=== PATIENT | male | born 1975 ===

== ENCOUNTER 2016-11-05 08:35 | Emergency (ER) | payer OTHER ==
[2016-11-05 08:35] VITALS: BMI 33.6
[2016-11-05] MEDS ORDERED: DiphenhydrAMINE 50 mg/ml Inj ONE (09:35)
[2016-11-05] MEDS ORDERED: DiphenhydrAMINE 50 mg/ml Inj IVP STA (09:35)
--- NOTE | 2016-11-05 09:50 | ED PDOC ---
HPI: General Adult Time Seen by Provider: 11/05/16 09:09 Chief Complaint (Nursing): Chest Pain Chief Complaint (Provider): Chest Pain History Per: Patient History/Exam Limitations: no limitations Onset/Duration Of Symptoms: Days (x1 month) Current Symptoms Are (Timing): Still Present Additional Complaint(s): 41 y/o male with a past medical history of Asthma and GURD who presents to the emergency department with a complaint of on and off appearing hives for the past month. Associated with intermittently swelling to the lower lip and constant chest pain described as pins and needles that worsens when he lays down especially on the left side. Patient also states symptoms feel like GURD but much worse. Reports taking Benadryl at home with the relief of symptoms. Denies shortness of breath, palpitations, and throat swelling. Of note, patient works as a bouncer and notes that the rash usually happens after work and goes home. PMD: None Past Medical History Reviewed: Historical Data, Nursing Documentation, Vital Signs Vital Signs: Last Vital Signs Temp 97.6 F 11/05/16 12:05 Pulse 75 11/05/16 12:01 Resp 17 11/05/16 12:01 BP 119/66 11/05/16 12:01 Pulse Ox 99 11/05/16 14:01 - Medical History PMH: Asthma, Bronchitis, GERD Denies: Chronic Kidney Disease - Family History Family History: States: Unknown Family Hx - Social History Current smoker - smoking cessation education provided: No Ex-Smoker (has not smoked in the last 12 months): No Alcohol: None Drugs: Denies - Home Medications Home Medications: Ambulatory Orders Medication Instructions Recorded Albuterol HFA [Ventolin HFA 90 1 puff IH PRN PRN 11/05/16 mcg/actuation (8 g)] DiphenhydrAMINE [Benadryl] 50 mg PO Q6H #20 cap 11/05/16 Esomeprazole Magnesium [Nexium] 20 mg PO BID 11/05/16 Famotidine [Pepcid] 20 mg PO BID #20 tab 11/05/16 Prednisone 50 mg PO DAILY #4 tab 11/05/16 - Allergies Allergies/Adverse Reactions: Allergies Allergy/AdvReac Type Severity Reaction Status Date / Time shellfish derived Allergy SWELLING Verified 11/05/16 08:58 Review of Systems ROS Statement: Except As Marked, All Systems Reviewed And Found Negative ENT: Positive for: Other (intermittently swelling to the lower lip ). Negative for: Throat Swelling Cardiovascular: Positive for: Chest Pain (Constant pain described as pins and needles in chest). Negative for: Palpitations Respiratory: Negative for: Shortness of Breath Skin: Positive for: Other (Hives) Physical Exam - Reviewed Nursing Documentation Reviewed: Yes Vital Signs Reviewed: Yes - Physical Exam Appears: Positive for: Non-toxic, No Acute Distress Head Exam: Positive for: ATRAUMATIC, NORMAL INSPECTION, NORMOCEPHALIC Skin: Positive for: Warm, Dry, Rash (Generalized urticarial on the torsal and back ; no vesicles ) Eye Exam: Positive for: Normal appearance. Negative for: Conjunctival injection ENT: Positive for: Other (lower lip edematous. Uvula located on the midline. No drooling. ). Negative for: Pharyngeal Erythema Neck: Positive for: Normal, Supple Cardiovascular/Chest: Positive for: Regular Rate, Rhythm. Negative for: Murmur Respiratory: Positive for: Normal Breath Sounds. Negative for: Accessory Muscle Use, Respiratory Distress Neurologic/Psych: Positive for: Alert, Oriented, Other (Speaking full sentences) - Laboratory Results Result Diagrams: 11/05/16 09:54 11/05/16 09:54 - ECG Interpretation Of ECG: NSR @ 73, IRBBB. O2 Sat by Pulse Oximetry: 99 (RA) Pulse Ox Interpretation: Normal - Radiology X-Ray: Read By Radiologist (No acute consolidation. Minor biapical pleural thickening.) - CT Scan/US CT chest Other Rad Studies (CT/US): Radiology Report Reviewed (No evidence of acute pulmonary embolus. Minor right basilar atelectasis. Small hiatal hernia.) Medical Decision Making Medical Decision Making: Time: 9:09 Initial impression: Urticaria, Chest pain, and GURD Initial plan: --Electrocardiogram Stat --COMP Metabolic Panel --Troponin I Stat --ED Urine Dipstick (POC) --EKG-ED (EDNURTX) Stat --CBC w/ differential --D Dimer (COAG) Stat --Chest Two Views (PA/LAT) (RAD) --Benadryl 50 mg IVP --Methylprednisolone 125 mg IVP --Pepcid 20 mg IVP --Revaluation Time: 9:54 --D-Dimer, Quantitative: 2.05 (H) Time: 11:20 --Chest X-ray FINDINGS: LUNGS: No active pulmonary disease. PLEURA: No significant pleural effusion identified. No pneumothorax apparent. Minor biapical pleural thickening CARDIOVASCULAR: Normal. OSSEOUS STRUCTURES: No significant abnormalities. VISUALIZED UPPER ABDOMEN: Normal. OTHER FINDINGS: None. IMPRESSION: No acute consolidation. Minor biapical pleural thickening. Scribe Attestation: Documented by Vannessa Heard, acting as a scribe for Shaina Smith. Time: 10:41 --Angio Chest Protocol CT Time: 12:38 --Chest CT Findings: The visualized pulmonary trunk, right and left main, lobar, segmental and subsegmental branches of the pulmonary arteries are well opacified with no definitive filling defects seen to suggest acute pulmonary embolus. Pulmonary artery is enlarged measuring approximately 2.4 cm . Heart size normal. No significant pericardial effusion. Ascending thoracic aorta measures approximately 2.6 cm and descending thoracic aorta measures approximately 2.4 cm.. Multiple small nonspecific mediastinal lymph nodes are noted. There is a small approximately 11.7 mm right hilar lymph node. Small left hilar lymph node noted. . Small size hiatal hernia with minor wall thickening of the distal esophagus likely due to protrusion of gastric mucosa . Right hemidiaphragm is elevated possibly due to eventration. Minor right basilar atelectasis. No effusion or pneumothorax. Visualized upper abdominal structures appear grossly unremarkable Impression: No evidence of acute pulmonary embolus. Minor right basilar atelectasis Small hiatal hernia. Time: 13:55 Upon provider reevaluation patient is feeling better, is medically stable, and requires no further treatment in the ED at this time. Patient will be discharged home with Rx for Benadryl 50 mg, Pepcid 20 mg and Prednisone 50 mg . Counseling was provided and all questions were answered regarding diagnosis and need for follow up with PMD. There is agreement to discharge plan. Return if symptoms persist or worsen. Clinical Impression: Urticaria and atypical chest pain Provider Scribe Attestation: All medical record entries made by the Scribe were at my direction and personally dictated by me. I have reviewed the chart and agree that the record accurately reflects my personal performance of the history, physical exam, medical decision making, and the department course for this patient. I have also personally directed, reviewed, and agree with the discharge instructions and disposition. Disposition - Clinical Impression Clinical Impression: Atypical chest pain, Urticaria Counseled Patient/Family Regarding: Studies Performed, Rx Given - Disposition Disposition: Routine/Home Disposition Time: 13:55 Condition: IMPROVED Additional Instructions: FOLLOW-UP WITH YOUR PMD WITHIN 2 DAYS FOR REEVALUATION. Prescriptions: DiphenhydrAMINE [Benadryl] 50 mg PO Q6H #20 cap Famotidine [Pepcid] 20 mg PO BID #20 tab Prednisone 50 mg PO DAILY #4 tab Instructions: Chest Pain (ED), Urticaria (ED) FREDDY Risk Score for UA/NSTEMI - FREDDY Risk Score Age > 64: NO 3 or more CAD Risk Factors: NO Known CAD (Stenosis greater than 50%): NO Aspirin use in past 7 days: NO EKG ST changes greater than 0.5mm: NO Positive Cardiac Marker: NO FREDDY Score: 0 % risk at 14 days of: all cause mortality, new or recurrent GA, or severe recurrent ischemia requiring urgen revascularization: 5% Wells Criteria for PE - Wells Criteria for Pulmonary Embolism Clinical Signs and Symptoms of DVT: No P.E is #1 Diagnosis, or Equally Likely: No Heart Rate >100: No Immobilization at least 3 days;Surgery previous 4 weeks: No Previous, objectively diagnosed PE or DVT: No Hemoptysis: No Malignancy w/treatment within 6 months, or palliative: No Total Score: 0
--- NOTE | 2016-11-05 10:12 | RAD ---
HISTORY: CP/back pain COMPARISON: Comparison chest 08/07/2016 TECHNIQUE: Chest PA and lateral FINDINGS: LUNGS: No active pulmonary disease. PLEURA: No significant pleural effusion identified. No pneumothorax apparent. Minor biapical pleural thickening CARDIOVASCULAR: Normal. OSSEOUS STRUCTURES: No significant abnormalities. VISUALIZED UPPER ABDOMEN: Normal. OTHER FINDINGS: None. IMPRESSION: No acute consolidation. Minor biapical pleural thickening.
[2016-11-05 10:14] LABS: ALB/GLOB RATIO 1.3 (1.0-2.1); ALKALINE PHOSPHATASE 84 U/L (38-126); ALT/SGPT 69 U/L (21-72); AST/SGOT 39 U/L (17-59); BILIRUBIN,TOTAL 0.5 mg/dl (0.2-1.3); BLOOD UREA NITROGEN 28 mg/dl (9-20); CALCIUM 9.2 mg/dL (8.4-10.2); CARBON DIOXIDE 28 mmol/L (22-30); CHLORIDE 105 mmol/L (98-107); GFR AFRICAN-AMERICAN > 60; GLUCOSE,RANDOM 87 mg/dL (75-110); POTASSIUM 3.9 MMOL/L (3.6-5.0); SODIUM 145 mmol/l (132-148)
[2016-11-05 10:20] LABS: BASO % 0.4 % (0.0-2.0); EOS # 0.2 K/uL (0.0-0.7); EOS % 2.2 % (0.0-4.0); HEMATOCRIT 46.5 % (35.0-51.0); LYMPH # 2.4 K/uL (1.0-4.3); LYMPH % 31.5 % (20.0-40.0); MEAN CELL VOLUME 87.4 fl (80.0-94.0); MEAN CORPUSCULAR HEMOGLOBIN 28.9 pg (27.0-31.0); MEAN CORPUSCULAR HGB CONC 33.1 g/dL (33.0-37.0); MEAN PLATELET VOLUME 9.7 fl (7.2-11.7); MONO # 0.7 K/uL (0.0-0.8); MONO % 9.5 % (0.0-10.0); NEUT # 4.3 K/uL (1.8-7.0); NEUT % 56.4 % (50.0-75.0); NRBC % 0.1 % (0.0-0.0); RED CELL DISTRIBUTION WIDTH 14.5 % (11.5-14.5); WHITE BLOOD COUNT 7.6 K/uL (4.8-10.8)
[2016-11-05] MEDS ORDERED: Sodium Chloride 0.9% 50 ML IV ONE (11:22)
[2016-11-05] MEDS ORDERED: Iodixanol 320 MG/ML 100 ML BOTTLE IV ONE (11:22)
[2016-11-05 12:04] VITALS: BP 119/66; PULSE 75; RESP 17
[2016-11-05 12:05] VITALS: TEMP 97.6
--- NOTE | 2016-11-05 12:40 | CT ---
PROCEDURE: CT Angiography chest dated 11/05/2016. HISTORY: SOB. Chest pain elevated ddimer TECHNIQUE: Technique: CT angiography of the chest performed in standard fashion. . Coronal and sagittal reformats, and well as rotating MIP images of the vessels generated at the workstation. Intravenous contrast dose: 95 cc Omnipaque Visipaque 320 contrast material. Radiation dose: Total exam DLP = 377.13 mGy-cm. This CT exam was performed using one or more of the following dose reduction techniques: Automated exposure control, adjustment of the mA and/or kV according to patient size, and/or use of iterative reconstruction technique. Findings: The visualized pulmonary trunk, right and left main, lobar, segmental and subsegmental branches of the pulmonary arteries are well opacified with no definitive filling defects seen to suggest acute pulmonary embolus. Pulmonary artery is enlarged measuring approximately 2.4 cm . Heart size normal. No significant pericardial effusion. Ascending thoracic aorta measures approximately 2.6 cm and descending thoracic aorta measures approximately 2.4 cm.. Multiple small nonspecific mediastinal lymph nodes are noted. There is a small approximately 11.7 mm right hilar lymph node. Small left hilar lymph node noted. . Small size hiatal hernia with minor wall thickening of the distal esophagus likely due to protrusion of gastric mucosa . Right hemidiaphragm is elevated possibly due to eventration. Minor right basilar atelectasis. No effusion or pneumothorax. Visualized upper abdominal structures appear grossly unremarkable Impression: No evidence of acute pulmonary embolus. Minor right basilar atelectasis Small hiatal hernia.
[2016-11-05 13:02] VITALS: O2SAT 99
--- NOTE | 2016-11-05 18:05 | CARD ---
APPROVED REPORT EKG Measurement Heart [id number] <Conclusion> Normal sinus rhythm Incomplete right bundle branch block Borderline ECG
== END 2016-11-05 14:20 | disposition home or self-care (01) ==
LOC: H.ER 08:35
DX: L50.9 Urticaria, unspecified (principal); R07.89 Other chest pain

== ENCOUNTER 2017-12-22 02:12 | Emergency (ER) | payer OTHER ==
[2017-12-22 02:13] VITALS: BMI 33.6
[2017-12-22 02:54] LABS: BASO # 0.1 K/uL (0.0-0.2); BASO % 0.6 % (0.0-2.0); EOS # 0.5 K/uL (0.0-0.7); EOS % 4.2 % (0.0-4.0); HEMOGLOBIN 15.5 g/dL (12.0-18.0); LYMPH # 2.7 K/uL (1.0-4.3); LYMPH % 21.5 % (20.0-40.0); MEAN CELL VOLUME 87.1 fl (80.0-94.0); MEAN CORPUSCULAR HGB CONC 33.3 g/dL (33.0-37.0); MEAN PLATELET VOLUME 8.8 fl (7.2-11.7); MONO # 0.8 K/uL (0.0-0.8); MONO % 6.4 % (0.0-10.0); NEUT # 8.5 K/uL (1.8-7.0); NEUT % 67.3 % (50.0-75.0); NRBC % 0.2 % (0.0-0.0); RBC 5.34 Mil/uL (4.40-5.90); RED CELL DISTRIBUTION WIDTH 14.5 % (11.5-14.5); WHITE BLOOD COUNT 12.7 K/uL (4.8-10.8)
[2017-12-22 02:59] LABS: CALCIUM 9.1 mg/dL (8.4-10.2); GFR AFRICAN-AMERICAN > 60; GFR NON-AFRICAN AMERICAN > 60
[2017-12-22 03:01] LABS: BLOOD UREA NITROGEN 28 mg/dl (9-20)
--- NOTE | 2017-12-22 03:03 | ED PDOC ---
HPI: Chest Pain Time Seen by Provider: 12/22/17 02:16 Chief Complaint (Nursing): Chest Pain Chief Complaint (Provider): Chest Pain History Per: Patient History/Exam Limitations: no limitations Onset/Duration Of Symptoms: Hrs (FINISHER OPERATOR) Current Symptoms Are (Timing): Still Present Quality: Tightness Associated Symptoms: denies: Nausea, Diaphoresis Additional Complaint(s): 42 year old male with a history of reflux and asthma presents to the ED complaining of chest pain. He reports he was awoken by an episode of chest tightness. He states he had similar symptoms 2 years ago and was diagnosed with GERD. Patient admits he has been poorly compliant with omeprazole. He also admits that he has a poor sleep pattern, snores and is fatigued during the day. Patient denies nausea, vomiting, diarrhea, abdominal pain or any other medical complaints. PMD: Dr. Ravi Boone Past Medical History Vital Signs: Last Vital Signs Temp 98.8 F 12/22/17 02:20 Pulse 62 12/22/17 02:20 Resp 18 12/22/17 02:20 BP 134/79 12/22/17 02:48 Pulse Ox 98 12/22/17 03:07 - Medical History PMH: Asthma, Bronchitis, GERD Denies: Chronic Kidney Disease - Surgical History Surgical History: No Surg Hx - Family History Family History: States: Unknown Family Hx - Social History Current smoker - smoking cessation education provided: No Ex-Smoker (has not smoked in the last 12 months): No Alcohol: Other (yes) Drugs: Denies - Home Medications Home Medications: Ambulatory Orders Medication Instructions Recorded Albuterol HFA [Ventolin HFA 90 1 puff IH PRN PRN 11/05/16 mcg/actuation (8 g)] DiphenhydrAMINE [Benadryl] 50 mg PO Q6H #20 cap 11/05/16 Esomeprazole Magnesium [Nexium] 20 mg PO BID 11/05/16 Famotidine [Pepcid] 20 mg PO BID #20 tab 11/05/16 Prednisone 50 mg PO DAILY #4 tab 11/05/16 - Allergies Allergies/Adverse Reactions: Allergies Allergy/AdvReac Type Severity Reaction Status Date / Time shellfish derived Allergy SWELLING Verified 11/05/16 08:58 Review of Systems ROS Statement: Except As Marked, All Systems Reviewed And Found Negative Cardiovascular: Positive for: Other (chest tightness) Gastrointestinal: Negative for: Nausea, Vomiting, Abdominal Pain, Diarrhea Physical Exam - Reviewed Nursing Documentation Reviewed: Yes Vital Signs Reviewed: Yes - Physical Exam Appears: Positive for: Non-toxic, No Acute Distress Head Exam: Positive for: ATRAUMATIC, NORMOCEPHALIC Skin: Positive for: Normal Color, Warm, Dry Eye Exam: Positive for: EOMI, Normal appearance, PERRL Neck: Positive for: Normal, Painless ROM Cardiovascular/Chest: Positive for: Regular Rate, Rhythm. Negative for: Murmur Respiratory: Positive for: Normal Breath Sounds. Negative for: Respiratory Distress Gastrointestinal/Abdominal: Positive for: Normal Exam, Soft. Negative for: Tenderness Extremity: Positive for: Normal ROM (upper and lower extremities) Neurologic/Psych: Positive for: Alert, Oriented (x3) - Laboratory Results Result Diagrams: 12/22/17 02:48 12/22/17 02:48 - ECG O2 Sat by Pulse Oximetry: 98 (RA) Pulse Ox Interpretation: Normal Medical Decision Making Medical Decision Making: Time: 2:30 Initial Impression: 42 y/o male with chest tightness and noncompliance with GERD medication Provider suspects sleep apnea Initial Plan: --Alcohol serum --BMP --Urine drug screen --CBC with differential --Heplock insertion Time: 3:44 --Patient is medically stable for discharge. Diagnosis is atypical chest pain. Patient was advised to follow up with his PMD, Dr. Boone for sleep studies. Scribe Attestation: Documented by Lilli Flores, acting as a scribe for Memo Payne MD Provider Scribe Attestation: All medical record entries made by the Scribe were at my direction and personally dictated by me. I have reviewed the chart and agree that the record accurately reflects my personal performance of the history, physical exam, medical decision making, and the department course for this patient. I have also personally directed, reviewed, and agree with the discharge instructions and disposition. Disposition - Clinical Impression Clinical Impression: Atypical chest pain, GERD (gastroesophageal reflux disease) - Disposition Disposition Time: 03:44 Condition: STABLE Instructions: Sleep Apnea, Chest Pain That Is Not Caused by the Heart (DC), Acid Reflux (Gastroesophageal Reflux Disease) in Adults Forms: [employer] (Malagasy)
[2017-12-22 04:03] VITALS: BP 133/72; PULSE 66; RESP 20; TEMP 97.4; O2SAT 97
== END 2017-12-22 04:10 | disposition home or self-care (01) ==
LOC: H.ER 02:12
DX: R07.89 Other chest pain (principal); K21.9 Gastro-esophageal reflux disease without esophagitis; J45.909 Unspecified asthma, uncomplicated; Z87.891 Personal history of nicotine dependence; Z91.14 Patient's other noncompliance with medication regimen; Z91.19 Patient's noncompliance with other medical treatment and regimen